=== PATIENT | female | born 1945 | race Caucasian/White ===

== ENCOUNTER 2021-04-11 11:40 | Outpatient (CLI) | payer MEDICARE, BC | END 2021-04-11 11:41 | disposition home or self-care (01) | LOC: PET 11:40 | PROVIDERS: ATTEND Internal Medicine Hematology & Oncology | DX: C82.38 Follicular lymphoma grade IIIa, lymph nodes of multiple sites (principal); N94.89 Other specified conditions associated with female genital organs and menstrual cycle | CPT/HCPCS: 78815; A9552 ==

== ENCOUNTER 2021-07-25 10:15 | Outpatient (CLI) | payer MEDICARE, BC | END 2021-07-25 10:16 | disposition home or self-care (01) | LOC: PET 10:15 | PROVIDERS: ATTEND Internal Medicine Hematology & Oncology | DX: C82.30 Follicular lymphoma grade IIIa, unspecified site (principal); S22.42XD Multiple fractures of ribs, left side, subsequent encounter for fracture with routine healing | CPT/HCPCS: 78815; A9552 ==

== ENCOUNTER 2022-01-09 11:00 | Outpatient (CLI) | payer MEDICARE, BC | END 2022-01-09 11:01 | disposition home or self-care (01) | LOC: PET 11:00 | PROVIDERS: ATTEND Internal Medicine Hematology & Oncology | DX: C82.38 Follicular lymphoma grade IIIa, lymph nodes of multiple sites (principal) | CPT/HCPCS: 78815; A9552 ==